=== PATIENT | female | born 1940 | race African-American/Black ===

== ENCOUNTER 2023-03-11 09:27 | Outpatient (CLI) | payer MEDICARE, OTHER ==
[2023-03-11] MEDS ORDERED: HYDROCORTISONE 1% CREAM 28.35 GM TUBE TP ONE (09:58)
[2023-03-11] MEDS ORDERED: CLOTRIMAZOLE 1% 15 GM TUBE TP ONE (09:59)
== END 2023-03-11 23:59 | disposition home health service (06) ==
LOC: EDBD → WOU 09:27
PROVIDERS: ATTEND Podiatrist Foot & Ankle Surgery
DX: I87.2 Venous insufficiency (chronic) (peripheral) (principal); R60.0 Localized edema; E11.9 Type 2 diabetes mellitus without complications; I10 Essential (primary) hypertension
CPT/HCPCS: 29580; A6454